=== PATIENT | female | born 1965 | race Caucasian/White ===

== ENCOUNTER 2016-05-08 20:35 | Emergency (ER) | payer OTHER ==
[~2016-05-08] VITALS: Wt 56.0 kg
[~2016-05-08 20:35] MED LIST: ACET-818 PO; HYDR-3498 PO; ONDA4TAB8 PO; SERT25TA83 PO; TRAZ50TA18 PO
--- NOTE | 2016-05-08 23:04 | RADRPT ---
PROCEDURE: CT Abdomen and pelvis without contrast. CLINICAL INDICATION: Abdominal pain. TECHNIQUE: CT scan of the abdomen and pelvis was performed on a multi-detector high-resolution CT scanner. Contiguous axial images were obtained from the lung bases to the ischial tuberosities wit hout intravenous contrast. Coronal and sagittal reformatted images were also obtained. Images were reviewed on the PACS workstation. One or more of the following dose reduction techniques were used: - Automated exposure control. - Adjustment of the mA and/or kV according to patient size. - Use of iterative reconstruction technique. Exam CTD/vol = 6.54 mGy. Total exam DLP = 302.03 mGy-cm. COMPARISON: 06/02/2015. FINDINGS: Evaluation of the lung bases demonstrates minimal bibasilar atelectasis. Abdomen: The liver is normal in size. There is no focal mass or dilatation of the biliary tree. T he patient is status post cholecystectomy. The spleen, pancreas and bilateral adrenal glands are wi thin normal limits. Bilateral kidneys are normal in size with no contour deforming mass identified. There is no radiopaque renal or ureteral calculus identified. There is no hydronephrosis or hydro ureter. There is no retroperitoneal adenopathy. The abdominal aorta is of normal caliber. There is moderate retained stool within the colon. There is no bowel obstruction or free air. The appendix is not visualized. There are scattered sigmoid diverticuli without evidence of diverticuli tis. There is no ascites. Pelvis: The bladder is unremarkable. The uterus is absent. There is a small left inguinal hernia containing fat. There is no significant pelvic adenopathy or free fluid. Evaluation of the osseous structures demonstrates no suspicious lytic or blastic lesion. IMPRESSION: No acute abnormality identified within the abdomen and pelvis. Moderate retained stool within the colon. Scattered sigmoid diverticuli without evidence of diverticulitis. Small left inguinal hernia containing fat. Status post cholecystectomy. .Luther Russell MD, MD Date Time Electronically viewed and signed by .Luther Russell MD, MD on 05/08/2016 23:04 .T/
[2016-05-08 23:07] LABS: ALBUMIN 4.5 g/dl (3.3-4.9)
[2016-05-08 23:08] LABS: BASOPHILS % 0.2 % (0.0-2.0); EOSINOPHILS # 0.1 10^3/ul (0.0-0.5); EOSINOPHILS % 0.9 % (0.0-7.0); HEMATOCRIT 39.2 % (37.0-47.0); HEMOGLOBIN 13.3 g/dl (12.0-16.0); LYMPHOCYTES # 3.7 10^3/ul (0.8-2.9); LYMPHOCYTES % 46.4 % (15.0-51.0); MEAN CORPUSCULAR HEMOGLOBIN 31.1 pg (29.0-33.0); MEAN CORPUSCULAR HGB CONC 33.9 g/dl (32.0-37.0); MEAN CORPUSCULAR VOLUME 91.8 fl (82.0-101.0); MEAN PLATELET VOLUME 9.4 fl (7.4-10.4); MONOCYTE # 0.5 10^3/ul (0.3-0.9); MONOCYTES % 6.4 % (0.0-11.0); NEUTROPHIL # 3.6 10^3/ul (1.6-7.5); NEUTROPHILS % 46.1 % (39.0-77.0); PLATELET COUNT 289 10^3/UL (140-440); POTASSIUM 3.8 mmol/L (3.5-5.1); RED BLOOD COUNT 4.28 10^6/ul (4.20-5.40); UNCORRECTED WBC 7.9 10^3/ul (4.8-10.8); WHITE BLOOD COUNT 7.9 10^3/ul (4.8-10.8)
[2016-05-08 23:09] LABS: CONDITION 1
[2016-05-08 23:09] LABS: ADD UMIC YES; URINE BILIRUBIN (Dip) NEGATIVE (NEGATIVE); URINE BLOOD (Dip) NEGATIVE (NEGATIVE); URINE COLOR LT. YELLOW (YELLOW); URINE GLUCOSE (Dip) NEGATIVE (NEGATIVE); URINE KETONES (Dip) NEGATIVE (NEGATIVE); URINE LEUKOCYTE ESTERASE (Dip) 1+ (NEGATIVE); URINE NITRITE (Dip) NEGATIVE (NEGATIVE); URINE TOTAL PROTEIN (Dip) NEGATIVE (NEGATIVE); URINE UROBILINOGEN (Dip) 0.2 E.U./dL (0.1-1.0)
[2016-05-08 23:10] LABS: ALBUMIN/GLOBULIN RATIO 1.25; BILIRUBIN,INDIRECT 0.3 mg/dl (0-1.1); BILIRUBIN,TOTAL 0.3 mg/dl (0.2-1.3); CREATININE 0.63 mg/dl (0.44-1.00); TOTAL PROTEIN 8.1 g/dl (6.1-8.1)
[2016-05-08 23:11] LABS: CALCIUM 10.5 mg/dl (8.4-10.2)
[2016-05-08 23:23] LABS: BACTERIA,URINE FEW; SQUAMOUS EPITHELIAL CELL,UR MODERATE; TRANSITIONAL EPI CELLS,URINE OCCASIONAL; URINE RBCS NONE SEEN /HPF (0)
[2016-05-08] MEDS ORDERED: CIPR500T4 PO (23:53)
[2016-05-09] MEDS ORDERED: ONDANSETRON (ODT) 4 MG TAB ODT STA (00:34)
[2016-05-09 00:37] VITALS: BP 146/76; PULSE 79; RESP 20; TEMP 97.5
[2016-05-09] MEDS ORDERED: HYDROCODONE/APAP (5/325) TAB PO ONE (01:00)
[2016-05-09] MEDS ORDERED: HYDR-902 PO (01:08)
--- NOTE | 2016-05-09 09:45 | ERD ---
DATE OF SERVICE: HISTORY OF PRESENT ILLNESS: The patient is a 50-year-old female complaining of epigastric pain and generalized abdominal pain. Patient states she has some urinary pressure when she urinates. The pa tient has no hematuria. No rectal bleeding. No pain with bowel movements, last bowel movement was this morning. No chest pain, no shortness of breath. She has not used medications for symptoms. Ela nails describes this pain intermittently over the last 2 weeks with no improvement. PAST MEDICAL HISTORY: Denies. ALLERGIES TO MEDICATIONS: Denies. PAST SURGICAL HISTORY: Appendectomy, cholecystectomy, and hysterectomy. REVIEW OF SYSTEMS: A 12-point review of systems was done. Refer to HPI for positives, all other sy stems negative. PHYSICAL EXAMINATION VITAL SIGNS: Temperature is 98.5, pulse 86, blood pressure is 140/85, respiratory rate 20, O2 satur ation 100% on room air. Pain intensity 8/10. GENERAL: The patient is well developed and appropriate for usual state of health, in no apparent di stress. HEENT: Atraumatic. Conjunctivae are pink. Pupils equal, round, and reactive to light. There is no s cleral icterus. Tympanic membranes clear bilaterally. Oropharynx clear. No nystagmus or photophobia . CHEST: Clear to auscultation bilaterally. There are no rales, wheezes or rhonchi. HEART: Regular rate and rhythm. No murmurs, clicks, rubs or gallops. No S3 or S4. ABDOMEN: Soft, nontender and nondistended. Good bowel sounds. No rebound or guarding. No gross kathy tonitis. No gross organomegaly or masses. No Mabry sign or McBurney point tenderness. SKIN: There is no apparent rash or petechia. The skin is warm and dry. EMERGENCY ROOM COURSE: The patient had blood work done in the ER. CBC was within normal limits. C MP is within normal limits. The patient's urine showed 1+ leukocytes with 5 to 10 white blood cells and few bacteria. Patient had a CT abdomen and pelvis without contrast which showed: 1. No acute abnormality identified within the abdomen and pelvis. 2. Moderate retained stool within the colon. 3. Scattered sigmoid diverticula without evidence of diverticulitis. 4. Small left inguinal hernia containing fat. 5. Status post cholecystectomy. DIAGNOSES: 1. Generalized abdominal pain, unspecified. 2. Urinary tract infection. MEDICAL DECISION MAKING: I have low suspicion for pyelo as the patient's exam is not concerning. I have a low suspicion for acute abdominal etiology. Exam is within normal limits. I have low suspi cion for cardiac abnormality. Patient's vital signs are stable. Patient is nontoxic-appearing, is not complaining of chest pain or shortness of breath. DISCHARGE: The patient is discharged stable. Patient given prescription for Cipro and told to foll ow up with primary care within 1 to 2 days for reevaluation. The patient was told if symptoms progr ess or worsen to return to the ER. All other questions answered at time of discharge. Discharge del castillo mmary given at the time of departure. Patient understood and complied with plan. Dictated By: VERN BELTRAN for KALEB HAZEL/MALIK Conf#: [id number] DID#: [id number]
== END 2016-05-09 01:16 | disposition home or self-care (01) ==
LOC: FTE 20:35
DX: R10.84 Generalized abdominal pain (principal); N39.0 Urinary tract infection, site not specified
CPT/HCPCS: 36415; 74176; 80053; 81001; 83690; 85025; Z7502; Z7610; 81003

== ENCOUNTER 2016-10-13 16:36 | Emergency (ER) | payer OTHER ==
[~2016-10-13] VITALS: Ht 157.5 cm; Wt 57.0 kg
[~2016-10-13 16:36] MED LIST changes: +CIPR500T4 PO; +HYDR-902 PO
[2016-10-13 16:47] VITALS: Ht 157.5 cm; Wt 57.0 kg
[2016-10-13] MEDS ORDERED: ONDANSETRON (ODT) 4 MG TAB ODT STA (17:02)
[2016-10-13 17:22] LABS: URINE BLOOD (Dip) POC Trace-intact (NEGATIVE)
[2016-10-13] MEDS ORDERED: HYDROCODONE/APAP (5/325) TAB PO ONE (17:30)
[2016-10-13] MEDS ORDERED: POLY17PO6 PO (17:59)
[2016-10-13] MEDS ORDERED: TRAM50TA2 PO (18:00)
[2016-10-13] MEDS ORDERED: ONDA4TAB8 PO (18:00)
--- NOTE | 2016-10-13 18:08 | ERD ---
ER Documentation Chief Complaint Date/Time DATE: 10/13/16 TIME: 18:04 Chief Complaint lower abdominal pain x 4 days HPI This 50-year-old female who presents to the emergency department today complaining of lower abdominal pain for the past 3-4 days. States she has some pain with urination. States she has had a total hysterectomy and also removal of her gallbladder and appendix. States she took ibuprofen for pain. States she does have some nausea. ROS All systems reviewed and are negative except as per history of present illness. Medications Home Meds Active Scripts Tramadol HCl (Tramadol HCl) 50 Mg Tablet, 50 MG PO Q4 Y for PAIN, #20 TAB Prov:RONEY DICKSON PA-C 10/13/16 Ondansetron Hcl* (Zofran*) 4 Mg Tablet, 4 MG PO Q6H for NAUSEA AND/OR VOMITING, #30 TAB Prov:RONEY DICKSON PA-C 10/13/16 Polyethylene Glycol* (Miralax*) 17 Gm Powd.pack, 17 GM PO DAILY, #30 PACKET Prov:RONEY DICKSON PA-C 10/13/16 Hydrocodone/Acetaminophen ([place] 10-325 Tablet) 1 Each Tablet, 1 TAB PO Q6H Y for PAIN, #7 TAB Prov:SEBAS LEIVA PA-C 05/09/16 Ciprofloxacin Hcl* (Ciprofloxacin Hcl*) 500 Mg Tablet, 500 MG PO BID for 7 Days , TAB Prov:SEBAS LEIVA PA-C 05/08/16 Acetaminophen-Codeine* (Tylenol No.3*) 300-30 Mg Tablet, 2 TAB PO Q4H Y for PAIN , #10 TAB Prov:NISHANT SWIFT NP 06/02/15 Hydrocodone Bit-Acetaminophen* ([place]*) 5-325 Mg Tab, 1 TAB PO Q6 Y for PAIN, # 20 TAB Prov:SCARLETT BARROW 04/04/15 Ondansetron Hcl* (Zofran*) 4 Mg Tablet, 4 MG PO Q6H for NAUSEA AND/OR VOMITING, #30 TAB Prov:SCARLETT BARROW 04/04/15 Reported Medications Sertraline Hcl* (Sertraline Hcl*) 25 Mg Tablet, 25 MG PO DAILY, TAB 12/1/15 Trazodone Hcl* (Trazodone Hcl*) 50 Mg Tablet, 50 MG PO HS, TAB 02/19/15 Allergies Allergies: Coded Allergies: No Known Allergy (Unverified , 02/19/15) PMhx/Soc History of Surgery: Yes (Hyterectomy, appendectomy, cholecystectomy) Anesthesia Reaction: No Hx Neurological Disorder: No Hx Respiratory Disorders: No Hx Cardiac Disorders: No Hx Psychiatric Problems: No Hx Miscellaneous Medical Probl: Yes Hx Alcohol Use: No Hx Substance Use: No Hx Tobacco Use: No Smoking Status: Never smoker Physical Exam Vitals Vital Signs Date Time Temp Pulse Resp B/P Pulse Ox O2 Delivery O2 Flow Rate FiO2 10/13/16 16:47 98.2 98 18 139/72 99 Physical Exam Const: no acute distress Head: Atraumatic Eyes: Normal Conjunctiva ENT: Normal External Ears, Nose and Mouth. Neck: Full range of motion..~ No meningismus. Resp: Clear to auscultation bilaterally Cardio: Regular rate and rhythm, no murmurs Abd: Soft, mild suprapubic tenderness and periumbilical tenderness non distended. Normal bowel sounds Skin: No petechiae or rashes Back: No midline or flank tenderness Ext: No cyanosis, or edema Neur: Awake and alert Psych: Normal Mood and Affect Results 24 hrs Laboratory Tests Test 10/13/16 17:28 Bedside Urine pH (LAB) 7.0 Bedside Urine Protein (LAB) Negative Bedside Urine Glucose (UA) Negative Bedside Urine Ketones (LAB) Negative Bedside Urine Blood Trace-intact Bedside Urine Nitrite (LAB) Negative Bedside Urine Leukocyte Esterase (L Negative Current Medications Medications (Trade) Dose Ordered Sig/Sean Route PRN Reason Start Time Stop Time Status Last Admin Dose Admin Acetaminophen/ Hydrocodone Bitart ([place] (5/325)) 1 tab ONCE ONCE PO 10/13/16 17:30 10/13/16 17:31 DC 10/13/16 17:13 Ondansetron HCl (Zofran Odt) 4 mg ONCE STAT ODT 10/13/16 17:02 10/13/16 17:04 DC 10/13/16 17:13 Procedures/MDM Is a 50-year-old female presents to the emergency department today complaining of some abdominal pain for the past 3-4 days. Patient has a history of a total hysterectomy, appendectomy and cholecystectomy. Patient had some suprapubic and periumbilical tenderness on physical exam however she is afebrile and otherwise well-appearing. Do not feel the patient requires laboratory workup or imaging at this time given concern for acute surgical abdomen is low as patient has had multiple organs removed. Low suspicion for diverticulitis. Upon review of patient's medical records she has had multiple CT scans within the past year and I feel at the risks outweigh the benefits at this time. I explained that to the patient. Upon review of patient's last CT scan in April patient did have a moderate amount of retained stool given patient's location of pain this may be related to constipation. Patient did indicate that she did have a bowel movement today but she does sometimes get constipated. I did obtain a UA UA is negative for infection. Low suspicion for UTI, pyelonephritis or nephrolithiasis. Patient was given [place], Zofran here in the emergency department. She will be given a prescription for tramadol, Naprosyn, MiraLAX and Zofran for home Discussed the patient with Dr. Singh and he is in agreement with the plan Departure Diagnosis: Primary Impression: Abdominal pain Abdominal location: lower abdomen, unspecified Qualified Code: R10.30 - Lower abdominal pain Condition: Fair Patient Instructions: Abdominal Pain Referrals: ADRIANA ROE (PCP) Additional Instructions: Llame al doctor REA y destiny mona TRINIDAD PARA DENTRO DE 1-2 KIM.Dgale a la secretaria que nosotros le instruimos hacer esta trinidad.Avise o llame si del castillo condicin se empeora antes de la trinidad. Regresa aqui si peor o no mejor. Take tramadol for severe pain otherwise take Naprosyn or Tylenol or Motrin Take MiraLAX as prescribed RONEY DICKSON PA-C Oct 13, 2016 18:08
[2016-10-17 16:10] LABS: URINE BLOOD (Dip) POC Trace-intact (NEGATIVE)
== END 2016-10-13 18:42 | disposition home or self-care (01) ==
LOC: FTE 16:36
DX: R10.30 Lower abdominal pain, unspecified (principal)
CPT/HCPCS: 81003; Z7502; 99284